=== PATIENT | female | born 1955 | race Two or more races ===

== ENCOUNTER → 2016-08-23 | Outpatient (CLI) | payer MEDICARE, OTHER ==
[2016-08-01 11:50] VITALS: BP 114/62
[~2016-08-23] MED LIST: ASPI-482 PO; ATOR10TA60 PO; CEPH-264 PO; CETI10TA22 PO; ESTR0.62; HYDR-2666 PO; INFL100V IV; MESA1.2T PO; METO25TA9 PO; MIRT15TA3; PEG31POW2; PREG75CA PO; SERT50TA PO; TRAM50TA PO
[2016-08-23 11:20] LABS: BASO % 1 % (0-3); EOS % 4 % (0-3); HEMATOCRIT 41.4 % (36.0-47.0); HEMOGLOBIN 13.7 g/dL (12.0-15.5); LYMPH # 2.7 x10^3/uL (1.0-4.8); LYMPH % 36 % (24-48); MEAN CORPUSCULAR HEMOGLOBIN 30 pg (25-35); MEAN CORPUSCULAR HGB CONC 33 g/dL (31-37); MEAN CORPUSCULAR VOLUME 91 fL (79-100); MONO % 7 % (0-9); NEUT % 52 % (31-73); PLATELET COUNT 245 x10^3/uL (140-400); RED BLOOD COUNT 4.54 x10^6/uL (3.50-5.40); RED CELL DISTRIBUTION WIDTH 14.3 % (11.5-14.5); WHITE BLOOD COUNT 7.4 x10^3/uL (4.0-11.0)
[2016-08-23 11:38] LABS: ALBUMIN 4.1 g/dL (3.4-5.0); DIRECT BILIRUBIN 0.1 mg/dL (0.0-0.2); TOTAL BILIRUBIN 0.4 mg/dL (0.2-1.0); TOTAL PROTEIN 9.3 g/dL (6.4-8.2)
== END | disposition home or self-care (01) ==
LOC: LAB 10:54
PROVIDERS: ATTEND Internal Medicine Gastroenterology
DX: K50.80 Crohn's disease of both small and large intestine without complications (principal)
CPT/HCPCS: 36415; 80076; 85027; 85651; 86140

== ENCOUNTER → 2017-07-08 | Outpatient (CLI) | payer MEDICARE, OTHER ==
[2017-04-25 13:00] VITALS: BP 97/60
[~2017-07-08] MED LIST changes: -HYDR-2666 PO; +HYDR-2758 PO; +METO-239 PO; -METO25TA9 PO; -PEG31POW2; +PEG31POW3
[2017-07-08 12:33] LABS: BASO # 0.1 x10^3/uL (0.0-0.2); BASO % 1 % (0-3); EOS % 3 % (0-3); HEMATOCRIT 38.9 % (36.0-47.0); LYMPH # 2.8 x10^3/uL (1.0-4.8); LYMPH % 37 % (24-48); MEAN CORPUSCULAR HEMOGLOBIN 30 pg (25-35); MEAN CORPUSCULAR HGB CONC 33 g/dL (31-37); MEAN CORPUSCULAR VOLUME 91 fL (79-100); MONO % 10 % (0-9); NEUT % 50 % (31-73); PLATELET COUNT 252 x10^3/uL (140-400); RED BLOOD COUNT 4.28 x10^6/uL (3.50-5.40); RED CELL DISTRIBUTION WIDTH 13.9 % (11.5-14.5); WHITE BLOOD COUNT 7.5 x10^3/uL (4.0-11.0)
[2017-07-08 12:38] LABS: BILIRUBIN,URINE NEGATIVE (NEG); GLUCOSE,URINE NEGATIVE (NEG); NITRITE,URINE NEGATIVE (NEG); PH,URINE 5.5; PROTEIN,URINE NEGATIVE (NEG-TRACE); UROBILINOGEN,URINE 0.2 mg/dL (0.2 mg/dL)
[2017-07-08 12:50] LABS: BACTERIA,URINE MODERATE /HPF (0-FEW); SQUAMOUS EPITHELIAL CELL,UR MOD /LPF
[2017-07-08 12:55] LABS: ALBUMIN 3.5 g/dL (3.4-5.0); ALBUMIN/GLOBULIN RATIO 0.8 (1.0-1.7); CALCIUM 8.7 mg/dL (8.5-10.1); CREATININE 0.8 mg/dL (0.6-1.0); GFR 72.4; POTASSIUM 3.9 mmol/L (3.5-5.1); TOTAL BILIRUBIN 0.5 mg/dL (0.2-1.0); TOTAL PROTEIN 7.9 g/dL (6.4-8.2)
[2017-07-08 12:59] LABS: CHOLESTEROL/HDL RATIO 3.9
--- NOTE | 2017-07-08 15:20 | RAD ---
DATE: 07/08/2017 EXAM: DIGITAL SCREEN BILAT W/CAD HISTORY: Routine screening COMPARISON: 07/02/2016 This study was interpreted with the benefit of Computerized Aided Detection (CAD). The breast parenchyma is heterogeneously dense, which could reduce sensitivity of mammography. Breast parenchyma level C. FINDINGS: No new or enlarging breast densities are seen. There are numerous benign type calcifications in both breasts. No suspicious microcalcifications have developed. IMPRESSION: Stable mammograms without evidence of malignancy. BI-RADS CATEGORY: 2 BENIGN FINDING(S) RECOMMENDED FOLLOW-UP: 12M 12 MONTH FOLLOW-UP PQRS compliance statement: Patient information was entered into a reminder system with a target due date for the next mammogram. Mammography is a sensitive method for finding small breast cancers, but it does not detect them all and is not a substitute for careful clinical examination. A negative mammogram does not negate a clinically suspicious finding and should not result in delay in biopsying a clinically suspicious abnormality. "Our facility is accredited by the [employer] Mammography Program."
== END | disposition home or self-care (01) ==
LOC: MAMMO 12:07
PROVIDERS: ATTEND Internal Medicine
DX: Z12.31 Encounter for screening mammogram for malignant neoplasm of breast (principal); I10 Essential (primary) hypertension
CPT/HCPCS: 36415; 80053; 80061; 81001; 84443; 85025; 87086; G0202; 77067

== ENCOUNTER 2017-08-16 16:20 | Emergency (ER) | payer MEDICARE, OTHER | END 2017-08-16 17:43 | disposition left against medical advice (07) | LOC: ER 16:20 | DX: S30.0XXA Contusion of lower back and pelvis, initial encounter (principal); S09.90XA Unspecified injury of head, initial encounter; I25.2 Old myocardial infarction; K50.90 Crohn's disease, unspecified, without complications; W06.XXXA Fall from bed, initial encounter; Y93.89 Activity, other specified; Y99.8 Other external cause status; Y92.89 Other specified places as the place of occurrence of the external cause | CPT/HCPCS: 72100; 99284 ==

== ENCOUNTER → 2017-11-15 | Outpatient (CLI) | payer MEDICARE, OTHER | END | disposition home or self-care (01) | LOC: CT 10:54 | DX: R91.8 Other nonspecific abnormal finding of lung field (principal); I10 Essential (primary) hypertension; E78.5 Hyperlipidemia, unspecified | CPT/HCPCS: 71250 ==

== ENCOUNTER → 2017-11-21 | Outpatient (CLI) | payer MEDICARE, OTHER ==
[2017-11-21 10:35] LABS: ADD MAN DIFF? NO
[2017-11-21 10:43] LABS: BILIRUBIN,URINE NEGATIVE (NEG); CLARITY,URINE CLEAR; COLOR,URINE YELLOW; GLUCOSE,URINE NEGATIVE (NEG); NITRITE,URINE NEGATIVE (NEG); PH,URINE 6.5; PROTEIN,URINE NEGATIVE (NEG-TRACE); UROBILINOGEN,URINE 0.2 mg/dL (0.2 mg/dL)
[2017-11-21 10:45] LABS: BASO % 0 % (0-3); EOS # 0.1 x10^3/uL (0.0-0.7); EOS % 1 % (0-3); HEMATOCRIT 38.8 % (36.0-47.0); HEMOGLOBIN 13.4 g/dL (12.0-15.5); LYMPH # 2.6 x10^3/uL (1.0-4.8); LYMPH % 25 % (24-48); MEAN CORPUSCULAR HEMOGLOBIN 31 pg (25-35); MEAN CORPUSCULAR HGB CONC 35 g/dL (31-37); MEAN CORPUSCULAR VOLUME 90 fL (79-100); MONO % 10 % (0-9); NEUT # 6.7 x10^3uL (1.8-7.7); NEUT % 65 % (31-73); PLATELET COUNT 322 x10^3/uL (140-400); RED BLOOD COUNT 4.29 x10^6/uL (3.50-5.40); RED CELL DISTRIBUTION WIDTH 14.2 % (11.5-14.5); WHITE BLOOD COUNT 10.4 x10^3/uL (4.0-11.0)
[2017-11-21 11:02] LABS: ALBUMIN 3.6 g/dL (3.4-5.0); ALBUMIN/GLOBULIN RATIO 0.7 (1.0-1.7); ALK PHOS 73 U/L (46-116); ALT (SGPT) 20 U/L (14-59); ANION GAP 9 (6-14); AST (SGOT) 13 U/L (15-37); BLOOD UREA NITROGEN 8 mg/dL (7-20); BUN/CREATININE RATIO 10 (6-20); CALCIUM 9.2 mg/dL (8.5-10.1); CARBON DIOXIDE 31 mmol/L (21-32); CHLORIDE 100 mmol/L (98-107); CHOLESTEROL 183 mg/dL (0-200); CHOLESTEROL/HDL RATIO 2.3; CREATININE 0.8 mg/dL (0.6-1.0); GFR 72.4; GLUCOSE 113 mg/dL (70-99); HDLC 78 mg/dL (40-60); LDLC 91 mg/dL (0-100); NON-HDL CHOLESTEROL 105 mg/dL (0-129); POTASSIUM 3.7 mmol/L (3.5-5.1); SODIUM 140 mmol/L (136-145); TOTAL BILIRUBIN 0.6 mg/dL (0.2-1.0); TOTAL PROTEIN 8.8 g/dL (6.4-8.2); TRIGLYCERIDES 68 mg/dL (0-150); VLDLC 14 mg/dL (0-40)
[2017-11-21 11:03] LABS: BACTERIA,URINE FEW /HPF (0-FEW); RBC,URINE 0 /HPF (0-2); SQUAMOUS EPITHELIAL CELL,UR MANY /LPF; WBC,URINE 20-40 /HPF (0-4)
[2017-11-21 11:12] LABS: THYROID STIM HORMONE (TSH) 0.955 uIU/mL (0.358-3.74)
[2017-11-22 04:24] LABS: HEMOGLOBIN A1C 6.1 % (4.8-5.6)
== END | disposition home or self-care (01) ==
LOC: LAB 10:03
DX: I10 Essential (primary) hypertension (principal); N39.0 Urinary tract infection, site not specified; E78.5 Hyperlipidemia, unspecified; R79.89 Other specified abnormal findings of blood chemistry
CPT/HCPCS: 36415; 80053; 80061; 81001; 83036; 84443; 85025; 87086

== ENCOUNTER 2017-12-07 16:25 | Emergency (ER) | payer MEDICARE, OTHER | END 2017-12-07 17:41 | disposition left against medical advice (07) | LOC: ER 16:25 | DX: R10.32 Left lower quadrant pain (principal); K59.00 Constipation, unspecified; K50.90 Crohn's disease, unspecified, without complications; I25.2 Old myocardial infarction; Z90.710 Acquired absence of both cervix and uterus | CPT/HCPCS: 99281 ==

== ENCOUNTER → 2018-01-06 | Outpatient (CLI) | payer MEDICARE, OTHER ==
[2018-01-06 09:47] LABS: ADD MAN DIFF? NO
[2018-01-06 10:01] LABS: BASO % 1 % (0-3); EOS # 0.2 x10^3/uL (0.0-0.7); EOS % 2 % (0-3); HEMATOCRIT 40.6 % (36.0-47.0); HEMOGLOBIN 13.6 g/dL (12.0-15.5); LYMPH # 3.7 x10^3/uL (1.0-4.8); LYMPH % 46 % (24-48); MEAN CORPUSCULAR HEMOGLOBIN 31 pg (25-35); MEAN CORPUSCULAR HGB CONC 34 g/dL (31-37); MEAN CORPUSCULAR VOLUME 91 fL (79-100); MONO # 0.6 x10^3/uL (0.0-1.1); MONO % 8 % (0-9); NEUT # 3.5 x10^3uL (1.8-7.7); NEUT % 44 % (31-73); PLATELET COUNT 301 x10^3/uL (140-400); RED BLOOD COUNT 4.45 x10^6/uL (3.50-5.40); RED CELL DISTRIBUTION WIDTH 14.3 % (11.5-14.5)
[2018-01-06 10:19] LABS: ALBUMIN 3.8 g/dL (3.4-5.0); ALBUMIN/GLOBULIN RATIO 0.9 (1.0-1.7); ALK PHOS 66 U/L (46-116); ALT (SGPT) 26 U/L (14-59); ANION GAP 10 (6-14); AST (SGOT) 21 U/L (15-37); BILIRUBIN,URINE NEGATIVE (NEG); BLOOD UREA NITROGEN 15 mg/dL (7-20); BUN/CREATININE RATIO 21 (6-20); CALCIUM 9.4 mg/dL (8.5-10.1); CARBON DIOXIDE 27 mmol/L (21-32); CHLORIDE 101 mmol/L (98-107); CHOLESTEROL 196 mg/dL (0-200); CLARITY,URINE CLOUDY; COLOR,URINE YELLOW; CREATININE 0.7 mg/dL (0.6-1.0); GFR 84.5; GLUCOSE 113 mg/dL (70-99); GLUCOSE,URINE NEGATIVE (NEG); HDLC 67 mg/dL (40-60); LDLC 101 mg/dL (0-100); NITRITE,URINE NEGATIVE (NEG); NON-HDL CHOLESTEROL 129 mg/dL (0-129); PH,URINE 5.5; POTASSIUM 3.7 mmol/L (3.5-5.1); PROTEIN,URINE NEGATIVE (NEG-TRACE); SODIUM 138 mmol/L (136-145); TOTAL BILIRUBIN 0.5 mg/dL (0.2-1.0); TOTAL PROTEIN 8.2 g/dL (6.4-8.2); TRIGLYCERIDES 139 mg/dL (0-150); UROBILINOGEN,URINE 0.2 mg/dL (0.2 mg/dL); VLDLC 28 mg/dL (0-40)
[2018-01-06 10:22] LABS: CHOLESTEROL/HDL RATIO 2.9
[2018-01-06 10:23] LABS: THYROID STIM HORMONE (TSH) 2.327 uIU/mL (0.358-3.74)
[2018-01-06 10:58] LABS: BACTERIA,URINE MODERATE /HPF (0-FEW); RBC,URINE 0 /HPF (0-2)
[2018-01-06 10:59] LABS: SQUAMOUS EPITHELIAL CELL,UR MANY /LPF; YEAST,URINE PRESENT /HPF
== END | disposition home or self-care (01) ==
LOC: LAB 09:24
DX: I10 Essential (primary) hypertension (principal); R73.9 Hyperglycemia, unspecified; R82.90 Unspecified abnormal findings in urine
CPT/HCPCS: 36415; 80053; 80061; 81001; 83036; 84443; 85025; 87086

== ENCOUNTER → 2018-09-08 | Outpatient (CLI) | payer MEDICARE, OTHER ==
[2017-12-07 17:11] VITALS: BP 141/80
[~2018-09-08] MED LIST changes: -HYDR-2758 PO; +HYDR-2761 PO; +LIALDA1.2 GM PO; -MESA1.2T PO
[2018-09-08 10:40] LABS: BASO # 0.1 x10^3/uL (0.0-0.2); BASO % 1 % (0-3); EOS # 0.2 x10^3/uL (0.0-0.7); EOS % 3 % (0-3); HEMATOCRIT 41.7 % (36.0-47.0); HEMOGLOBIN 13.8 g/dL (12.0-15.5); LYMPH # 3.8 x10^3/uL (1.0-4.8); LYMPH % 45 % (24-48); MEAN CORPUSCULAR HEMOGLOBIN 30 pg (25-35); MEAN CORPUSCULAR HGB CONC 33 g/dL (31-37); MEAN CORPUSCULAR VOLUME 90 fL (79-100); MONO # 0.7 x10^3/uL (0.0-1.1); MONO % 8 % (0-9); NEUT # 3.6 x10^3uL (1.8-7.7); NEUT % 43 % (31-73); PLATELET COUNT 313 x10^3/uL (140-400); RED BLOOD COUNT 4.63 x10^6/uL (3.50-5.40); RED CELL DISTRIBUTION WIDTH 14.1 % (11.5-14.5); WHITE BLOOD COUNT 8.4 x10^3/uL (4.0-11.0)
[2018-09-08 10:42] LABS: BILIRUBIN,URINE NEGATIVE (NEG); CLARITY,URINE CLEAR; COLOR,URINE YELLOW; NITRITE,URINE NEGATIVE (NEG); PROTEIN,URINE NEGATIVE (NEG-TRACE); UROBILINOGEN,URINE 0.2 mg/dL (0.2 mg/dL)
[2018-09-08 10:50] LABS: SQUAMOUS EPITHELIAL CELL,UR MOD /LPF
[2018-09-08 10:51] LABS: BACTERIA,URINE MOD /HPF (0-FEW)
[2018-09-08 10:53] LABS: RBC,URINE OCC /HPF (0-2)
[2018-09-08 10:59] LABS: ALBUMIN 4.3 g/dL (3.4-5.0); CALCIUM 9.3 mg/dL (8.5-10.1); GFR 55.8; POTASSIUM 4.2 mmol/L (3.5-5.1); TOTAL BILIRUBIN 0.5 mg/dL (0.2-1.0); TOTAL PROTEIN 8.7 g/dL (6.4-8.2)
--- NOTE | 2018-09-08 11:04 | RAD ---
DATE: 09/08/2018 EXAM: MAMMO FELY SCREENING BILATERAL HISTORY: Routine screening COMPARISON: 07/08/2017 This study was interpreted with the benefit of Computerized Aided Detection (CAD). Breast Density: HETERO The breast parenchyma is heterogenously dense, which could reduce sensitivity of mammography. Breast parenchyma level C. FINDINGS: 2-D and 3-D tomosynthesis imaging was performed in CC and MLO projections. The fibroglandular tissues are dense and quite heterogeneous. No new or enlarging breast density is seen. There are numerous microcalcifications in both breasts. The distribution suggests a benign etiology. IMPRESSION: Stable mammograms without evidence of malignancy. BI-RADS CATEGORY: 2 BENIGN FINDING(S) RECOMMENDED FOLLOW-UP: 12M 12 MONTH FOLLOW-UP PQRS compliance statement: Patient information was entered into a reminder system with a target due date for the next mammogram. Mammography is a sensitive method for finding small breast cancers, but it does not detect them all and is not a substitute for careful clinical examination. A negative mammogram does not negate a clinically suspicious finding and should not result in delay in biopsying a clinically suspicious abnormality. "Our facility is accredited by the [employer] Mammography Program."
[2018-09-08 11:13] LABS: CHOLESTEROL/HDL RATIO 3.2
== END | disposition home or self-care (01) ==
LOC: LAB 09:58
PROVIDERS: ATTEND Internal Medicine
DX: Z12.31 Encounter for screening mammogram for malignant neoplasm of breast (principal); I10 Essential (primary) hypertension; E78.5 Hyperlipidemia, unspecified; Z90.49 Acquired absence of other specified parts of digestive tract
CPT/HCPCS: 36415; 77063; 77067; 80053; 80061; 81001; 84443; 85025

== ENCOUNTER → 2018-10-08 | Outpatient (CLI) | payer MEDICARE, OTHER ==
[2017-12-07 17:11] VITALS: BP 141/80
[~2018-10-08] MED LIST changes: +ZOLPIDEM 5 MG TABLET. PO ONE
--- NOTE | 2018-10-09 14:57 | SLEEP ---
DATE OF STUDY: 10/08/2018 ATTENDING PHYSICIAN: Dr. Thibodeaux. REFERRING PHYSICIAN: Dr. Jeremy De La Rosa. The patient is a 63-year-old who weighs 155 pounds with a BMI of 26. The patient's [place] score was 12. The patient underwent split night study at [facility]. During the night study, the patient spent 495 minutes in bed and slept for 450 minutes with sleep efficiency of 91%. Sleep latency was 29 minutes with a REM latency of 217 minutes. Overall sleep architecture showed increased stage 1 and stage 2 sleep, increased N3 sleep and reduced REM sleep. During the initial diagnostic portion of the study, the patient slept for 111 minutes. During that time, there were no obstructive central or mixed apneas, but 62 hypopneas. The patient's apnea-hypopnea index was 34 per hour, supine index was not observed due to lack of supine sleep and REM sleep was not observed either. Nocturnal oximetry study revealed a mean oxygen saturation of 96% with the lowest of 79%. 8% of the time oxygen saturation remained between 80% and 89%. PLMS were seen at index of 28 per hour and 2 per hour caused EEG arousals. EKG monitoring revealed an average heart rate of 66 beats per minute, occasional PACs seen. No sustained arrhythmias observed. The patient met the criteria for CPAP initiation. It was started at 5 cm water and titrated up to 12 cm of water. At the final pressure, the patient slept for 46 minutes. The patient had supine sleep throughout. No REM sleep observed. The patient's AHI was reduced to 1 per hour and oxygen saturation remained above 93%. The patient used small sized full face mask. IMPRESSION: 1. Severe sleep apnea-hypopnea syndrome at an apnea-hypopnea index of 34 per hour. 2. Nocturnal hypoxia secondary to obstructive sleep apnea, but resolved with CPAP. 3. Moderate periodic limb movements of sleep. RECOMMENDATIONS: 1. CPAP at 12 cm water completely eliminated the patient's sleep apnea and should be used on a nightly basis. 2. Follow up in 4-6 weeks to assess compliance with CPAP and to document clinical improvement. 3. Weight loss is advised. 4. 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 5. Cautioned regarding driving until symptoms of sleep apnea have resolved with the use of CPAP. 6. The patient should also be further evaluated for symptoms of restless legs during the day. JULIO MATOS MD DR: MELISSA/jonatan JOB#: [id number] / [id number] JEREMY Peraza MD
== END | disposition home or self-care (01) ==
LOC: SLPLAB 19:15
PROVIDERS: ATTEND Internal Medicine Pulmonary Disease
DX: G47.33 Obstructive sleep apnea (adult) (pediatric) (principal); G47.34 Idiopathic sleep related nonobstructive alveolar hypoventilation; G47.61 Periodic limb movement disorder
CPT/HCPCS: 95810

== ENCOUNTER → 2019-01-01 | Outpatient (CLI) | payer MEDICARE, OTHER ==
[2017-12-07 17:11] VITALS: BP 141/80
[~2019-01-01] MED LIST changes: -ZOLPIDEM 5 MG TABLET. PO ONE
[2019-01-01 11:36] LABS: BASO % 1 % (0-3); EOS # 0.2 x10^3/uL (0.0-0.7); EOS % 3 % (0-3); HEMATOCRIT 39.3 % (36.0-47.0); HEMOGLOBIN 13.2 g/dL (12.0-15.5); LYMPH # 3.4 x10^3/uL (1.0-4.8); LYMPH % 49 % (24-48); MEAN CORPUSCULAR HEMOGLOBIN 31 pg (25-35); MEAN CORPUSCULAR HGB CONC 34 g/dL (31-37); MEAN CORPUSCULAR VOLUME 92 fL (79-100); MONO # 0.6 x10^3/uL (0.0-1.1); MONO % 8 % (0-9); NEUT # 2.8 x10^3uL (1.8-7.7); NEUT % 40 % (31-73); PLATELET COUNT 300 x10^3/uL (140-400); RED BLOOD COUNT 4.28 x10^6/uL (3.50-5.40); RED CELL DISTRIBUTION WIDTH 14.1 % (11.5-14.5)
[2019-01-01 11:51] LABS: ALBUMIN 3.9 g/dL (3.4-5.0); ALBUMIN/GLOBULIN RATIO 0.9 (1.0-1.7); CALCIUM 9.7 mg/dL (8.5-10.1); GFR 55.8; POTASSIUM 4.5 mmol/L (3.5-5.1); TOTAL BILIRUBIN 0.4 mg/dL (0.2-1.0); TOTAL PROTEIN 8.2 g/dL (6.4-8.2)
[2019-01-01 11:52] LABS: CHOLESTEROL/HDL RATIO 3.1
== END | disposition home or self-care (01) ==
LOC: LAB 11:12
PROVIDERS: ATTEND Internal Medicine
DX: I10 Essential (primary) hypertension (principal)
CPT/HCPCS: 36415; 80053; 80061; 85025

== ENCOUNTER 2019-12-11 16:58 | Emergency (ER) | payer OTHER ==
[~2019-12-11] VITALS: Ht 165.1 cm; Wt 77.2 kg
[~2019-12-11 16:58] MED LIST changes: -CETI10TA22 PO; +CETI10TA24 PO; +PREG-9 PO; -PREG75CA PO
--- NOTE | 2019-12-11 17:26 | PHYS DOC ---
Past Medical History Past Medical History: Depression, [place], Other Additional Past Medical Histor: Crohns disease (WILLIAM LOPEZ MD) Past Surgical History: Hysterectomy, Other Additional Past Surgical Histo: Sinus Surgery (WILLIAM LOPEZ MD) Smoking Status: Never Smoker Alcohol Use: None Drug Use: None (WILLIAM LOPEZ MD) General Adult EDM: Chief Complaint: ABDOMINAL PAIN HPI: HPI: PPE Statement: During the patient's care I used an N95 mask, gloves, and face sheild. 64-year-old female presented emerge department today with abdominal pain for the last few days. She has had a few episodes of vomiting that is nonbilious or bloody. She has a history of a hysterectomy. She denies any fevers or chills. She has a history of Crohn's disease. She denies diarrhea or blood in her stools. The pain is a sharp shooting pain that radiates around to the back. Its moderate intermittent without alleviating factors. Review of systems is negative for chest pain shortness of breath fevers or chills. All other review of systems negative. ED course: 64-year-old female presenting with nausea and vomiting with abdominal pain. Vitals are within normal limits. Patient is well-appearing. Patient was placed n.p.o. Blood work sent. Abdominal CT ordered. We will give the patient IV fluids antiemetic medications and pain medications in the interim. pt will be signed out to oncoming physician at around 6pm with plans to follow up on testing and reexamine pt for final disposition. (WILLIAM LOPEZ MD) Heart Score: Risk Factors: Risk Factors: DM, Current or recent (<one month) smoker, HTN, HLP, family history of CAD, obesity. Risk Scores: Score 0 - 3: 2.5% MACE over next 6 weeks - Discharge Home Score 4 - 6: 20.3% MACE over next 6 weeks - Admit for Clinical Observation Score 7 - 10: 72.7% MACE over next 6 weeks - Early Invasive Strategies (WILLIAM LOPEZ MD) Allergies: Allergies: Allergies Coded Allergies Type Severity Reaction Last Updated Verified No Known Drug Allergies 04/25/17 No (WILLIAM LOPEZ MD) Physical Exam: PE: Constitutional: Well developed, well nourished, no acute distress, non-toxic appearance. [] HENT: Normocephalic, atraumatic, bilateral external ears normal, oropharynx moist, no oral exudates, nose normal. [] Eyes: PERRLA, EOMI, conjunctiva normal, no discharge. [] Neck: Normal range of motion, no tenderness, supple, no stridor. [] Cardiovascular:Heart rate regular rhythm, no murmur [] Lungs & Thorax: Bilateral breath sounds clear to auscultation [] Abdomen: Bowel sounds normal, soft, mildly tender generally without a focus, mildly distended, no masses, no pulsatile masses. Negative McBurney's point. Negative Vivas sign. No rebound tenderness or guarding. Skin: Warm, dry, no erythema, no rash. [] Back: No tenderness, no CVA tenderness. [] Extremities: No tenderness, no cyanosis, no clubbing, ROM intact, no edema. [] Neurologic: Alert and oriented X 3, normal motor function, normal sensory function, no focal deficits noted. [] Psychologic: Affect normal, judgement normal, mood normal. [] (WILLIAM LOPEZ MD) EKG: EKG: [] (WILLIAM LOPEZ MD) Radiology/Procedures: Radiology/Procedures: [] (WILLIAM LOPEZ MD) Impression: PROCEDURE: CT ABD PELV W/ IV CONTRST ONLY CT abdomen and pelvis with contrast PQRS statement: CT scans at this facility use dose reduction including either automated exposure control, iterative reconstructions, and /or weight based radiation dosing via mA and kV modification when appropriate to reduce radiation dose to as low as reasonably achievable. Contrast: 60 mL Omnipaque 300 intravenous contrast. HISTORY: Abdominal pain and vomiting. Abdomen findings: Lung bases and bones are unremarkable. Lumbar disc disease. Pancreas, liver, gallbladder, spleen, adrenal glands and left kidney are unremarkable. There is mild right renal hydronephrosis renal pelvis diameter 1.2 cm and mild asymmetric distention of the right upper ureter, near the region of the right distal ureter image 78 there is a 3 mm calculus which appears to be along the posterior wall of the ureter and not within the center of the ureter which favors this is more likely a phlebolith than a ureteral calculus although given the hydronephrosis a urinary calculus is possible. No renal edema or delayed or striated nephrogram evident. No obstruction or inflammation the GI tract. Appendix is small in caliber medial the cecum and negative. No abdominal fluid or adenopathy. Pelvis findings: Hysterectomy. Left ovary absent. Right ovary absent or markedly atrophic. Pelvic calcification likely phleboliths one of which is along the posterior wall distal right ureter. No bladder calculi evident. Rectum and bones are unremarkable. IMPRESSION: 1. Mild right renal hydronephrosis. There is a 3 mm calcification along the posterior wall of the distal right ureter adjacent of the bladder, favored to be a phlebolith, although given the presence of hydronephrosis an eccentrically positioned urinary calculus is a less likely consideration. Follow-up will be of benefit. 2. Appendix is negative. Electronically signed by: Jaime Aguilar MD (12/11/2019 7:07 PM) [facility] (BARBIE CASTAÑEDA Jr. DO) Course & Med Decision Making: Course & Med Decision Making Pertinent Labs and Imaging studies reviewed. (See chart for details) [] (WILLIAM LOPEZ MD) Dragon Disclaimer: Dragon Disclaimer: This electronic medical record was generated, in whole or in part, using a voice recognition dictation system. (WILLIAM LOPEZ MD) Departure Departure Impression: Primary Impression: Vomiting Qualified Codes: R11.2 - Nausea with vomiting, unspecified Additional Impressions: Abdominal pain Qualified Codes: R10.9 - Unspecified abdominal pain Ureterolithiasis Disposition: HOME, SELF-CARE Condition: STABLE Referrals: KATHRIN GARCIA MD (PCP) Patient Instructions: Abdominal Pain, Kidney Stones Scripts Tamsulosin Hcl (FLOMAX) 0.4 Mg Cap.er.24h 0.4 MG PO DAILY, #10 TAB Prov: BARBIE CASTAÑEDA Jr. DO 12/11/19 Ondansetron (ONDANSETRON ODT) 4 Mg Tab.rapdis 1 TAB PO PRN Q6-8HRS PRN for NAUSEA, #15 TAB Prov: BARBIE CASTAÑEDA Jr. DO 12/11/19 Oxycodone/Apap 7.5-325 (PERCOCET 7.5-325 MG TABLET ) 1 Each Tablet 1 TAB PO QIDPRN PRN for PAIN MDD 4 Tablet(s) for 5 Days, #20 TAB 0 Refills Prov: BARBIE CASTAÑEDA Jr. DO 12/11/19 WILLIAM LOPEZ MD December 11, 2019 17:26 BARBIE CASTAÑEDA Jr. DO December 11, 2019 19:37
[2019-12-11] MEDS ORDERED: ONDANSETRON PF 4 MG/2 ML VIAL. IVP ONE (17:30)
[2019-12-11] MEDS ORDERED: IV NORMAL SALINE 1000ML BAG 1,000 ML IV ONE (17:30)
[2019-12-11 17:31] LABS: BILIRUBIN,URINE NEGATIVE (NEG); CLARITY,URINE CLEAR; COLOR,URINE STRAW; NITRITE,URINE NEGATIVE (NEG); PROTEIN,URINE NEGATIVE (NEG-TRACE); UROBILINOGEN,URINE 0.2 mg/dL (0.2 mg/dL)
[2019-12-11 17:35] LABS: BACTERIA,URINE MODERATE /HPF (0-FEW); RBC,URINE 0 /HPF (0-2); SQUAMOUS EPITHELIAL CELL,UR FEW /LPF; WBC,URINE OCC /HPF (0-4)
[2019-12-11] MEDS: fentaNYL PF VIAL 100 MCG/2 ML VIAL IV PRN ×2 (17:50→19:25)
[2019-12-11 17:53] LABS: BASO # 0.1 x10^3/uL (0.0-0.2); BASO % 1 % (0-3); EOS # 0.1 x10^3/uL (0.0-0.7); EOS % 2 % (0-3); HEMATOCRIT 36.8 % (36.0-47.0); HEMOGLOBIN 12.3 g/dL (12.0-15.5); LYMPH # 3.1 x10^3/uL (1.0-4.8); LYMPH % 34 % (24-48); MEAN CORPUSCULAR HEMOGLOBIN 30 pg (25-35); MEAN CORPUSCULAR HGB CONC 33 g/dL (31-37); MEAN CORPUSCULAR VOLUME 91 fL (79-100); MONO # 0.8 x10^3/uL (0.0-1.1); MONO % 8 % (0-9); NEUT # 5.1 x10^3/uL (1.8-7.7); NEUT % 56 % (31-73); PLATELET COUNT 312 x10^3/uL (140-400); RED BLOOD COUNT 4.04 x10^6/uL (3.50-5.40); RED CELL DISTRIBUTION WIDTH 15.1 % (11.5-14.5); WHITE BLOOD COUNT 9.3 x10^3/uL (4.0-11.0)
[2019-12-11 18:01] LABS: CALCIUM 8.6 mg/dL (8.5-10.1); CREATININE 1.1 mg/dL (0.6-1.0); GFR 49.8; POTASSIUM 3.4 mmol/L (3.5-5.1)
[2019-12-11 18:07] LABS: ALBUMIN 3.6 g/dL (3.4-5.0); ALBUMIN/GLOBULIN RATIO 0.9 (1.0-1.7); TOTAL BILIRUBIN 0.2 mg/dL (0.2-1.0); TOTAL PROTEIN 7.5 g/dL (6.4-8.2)
[2019-12-11] MEDS ORDERED: IOHEXOL 300 MG/ML 100ML VIAL. IV ONE (18:15)
[2019-12-11] MEDS ORDERED: CONTRAST GIVEN. MC PRN (18:15)
--- NOTE | 2019-12-11 19:10 | RAD ---
CT abdomen and pelvis with contrast PQRS statement: CT scans at this facility use dose reduction including either automated exposure control, iterative reconstructions, and /or weight based radiation dosing via mA and kV modification when appropriate to reduce radiation dose to as low as reasonably achievable. Contrast: 60 mL Omnipaque 300 intravenous contrast. HISTORY: Abdominal pain and vomiting. Abdomen findings: Lung bases and bones are unremarkable. Lumbar disc disease. Pancreas, liver, gallbladder, spleen, adrenal glands and left kidney are unremarkable. There is mild right renal hydronephrosis renal pelvis diameter 1.2 cm and mild asymmetric distention of the right upper ureter, near the region of the right distal ureter image 78 there is a 3 mm calculus which appears to be along the posterior wall of the ureter and not within the center of the ureter which favors this is more likely a phlebolith than a ureteral calculus although given the hydronephrosis a urinary calculus is possible. No renal edema or delayed or striated nephrogram evident. No obstruction or inflammation the GI tract. Appendix is small in caliber medial the cecum and negative. No abdominal fluid or adenopathy. Pelvis findings: Hysterectomy. Left ovary absent. Right ovary absent or markedly atrophic. Pelvic calcification likely phleboliths one of which is along the posterior wall distal right ureter. No bladder calculi evident. Rectum and bones are unremarkable. IMPRESSION: 1. Mild right renal hydronephrosis. There is a 3 mm calcification along the posterior wall of the distal right ureter adjacent of the bladder, favored to be a phlebolith, although given the presence of hydronephrosis an eccentrically positioned urinary calculus is a less likely consideration. Follow-up will be of benefit. 2. Appendix is negative. Electronically signed by: Jaime Aguilar MD (12/11/2019 7:07 PM) [facility]
[2019-12-11 19:30] VITALS: BP 132/61
[2019-12-11] MEDS ORDERED: OXYC1TAB19 PO (19:36)
[2019-12-11] MEDS ORDERED: ONDA4TAB12 PO (19:36)
[2019-12-11] MEDS ORDERED: TAMS0.4C97 PO (19:36)
--- NOTE | 2019-12-14 07:08 | EKG ---
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
== END 2019-12-11 20:02 | disposition home or self-care (01) ==
LOC: ER 16:58
DX: N13.2 Hydronephrosis with renal and ureteral calculous obstruction (principal); R11.2 Nausea with vomiting, unspecified; Z90.710 Acquired absence of both cervix and uterus; Z98.890 Other specified postprocedural states; I25.2 Old myocardial infarction; Z88.8 Allergy status to other drugs, medicaments and biological substances
CPT/HCPCS: 36415; 74177; 80053; 81001; 83690; 84484; 85025; 87086; 93005; 96361; 96374; 96375; 96376; 99285; J2405; J3010; J7030; Q9967

== ENCOUNTER → 2020-02-18 | Outpatient (CLI) | payer OTHER ==
[~2020-02-18] MED LIST changes: -CETI10TA24 PO; +CETI10TA74 PO; +ONDA4TAB12 PO; +OXYC1TAB19 PO; +TAMS0.4C97 PO
--- NOTE | 2020-02-18 12:15 | CARD ---
MR#: [id number] Date of Study: 02/18/2020 Ordering Physician: AMERICA NEAL, Referring Physician: AMERICA NEAL, Tech: Treasure Nolasco [facility] APPROVED REPORT EXAM: Two-dimensional and M-mode echocardiogram with Doppler and color Doppler. Other Information Quality : Good INDICATION Dizziness and Vertigo 2D DIMENSIONS RVDd2.8 (2.9-3.5cm)Left Atrium(2D)3.3 (1.6-4.0cm) IVSd1.1 (0.7-1.1cm)Aortic Root(2D)2.6 (2.0-3.7cm) LVDd4.0 (3.9-5.9cm)LVOT Diameter1.8 (1.8-2.4cm) PWd1.0 (0.7-1.1cm)LVDs2.8 (2.5-4.0cm) FS (%) 30.0 %LVEF(%)60.0 (>50%) Aortic Valve AoV Peak Josh.133.0cm/sAoV VTI25.0cm AO Peak GR.7.0mmHgAO Mean GR.3mmHg EDUAR (VTI)2.70cm2 Tricuspid Valve TR P. [id number]/sRAP [id number] TR Peak Gr.[id number] LEFT VENTRICLE The left ventricle is normal size. There is normal left ventricular wall thickness. The left ventricu lar systolic function is normal and the ejection fraction is within normal range. The Ejection Fracti on is 55-60%. There is normal LV segmental wall motion. Transmitral Doppler flow pattern is Grade I-a bnormal relaxation pattern. RIGHT VENTRICLE The right ventricle is normal size. The right ventricular systolic function is normal. ATRIA The left atrium size is normal. The right atrium size is normal. The interatrial septum is intact wit h no evidence for an atrial septal defect or patent foramen ovale as noted on 2-D or Doppler imaging. AORTIC VALVE The aortic valve is normal in structure and function. Doppler and Color Flow revealed no significant aortic regurgitation. There is no significant aortic valvular stenosis. MITRAL VALVE The mitral valve is normal in structure and function. There is no evidence of mitral valve prolapse. There is no mitral valve stenosis. Doppler and Color-flow revealed trace to mild mitral regurgitation . TRICUSPID VALVE The tricuspid valve is normal in structure and function. Doppler and Color Flow revealed trace to mil d tricuspid regurgitation. The PA pressure was estimated at 24 mmHg. There is no tricuspid valve sten osis. PULMONIC VALVE The pulmonary valve is normal in structure and function. Doppler and Color Flow revealed trace to mil d pulmonic valvular regurgitation. There is no pulmonic valvular stenosis. GREAT VESSELS The aortic root is normal in size. The ascending aorta is normal in size. The IVC is normal in size a nd collapses >50% with inspiration. PERICARDIAL EFFUSION There is no evidence of significant pericardial effusion. Critical Notification Critical Value: No <Conclusion> The left ventricle is normal size. The left ventricular systolic function is normal and the ejection fraction is within normal range. The Ejection Fraction is 55-60%. Doppler and Color Flow revealed no significant aortic regurgitation. There is no significant aortic valvular stenosis. Doppler and Color-flow revealed trace to mild mitral regurgitation. Doppler and Color Flow revealed trace to mild tricuspid regurgitation. The PA pressure was estimated at 24 mmHg. Signed by : America Neal MD Electronically Approved : 02/18/2020 12:14:40
== END | disposition home or self-care (01) ==
LOC: CARD 09:38
PROVIDERS: ATTEND Internal Medicine Cardiovascular Disease
DX: I08.8 Other rheumatic multiple valve diseases (principal); R42 Dizziness and giddiness
CPT/HCPCS: 93306

== ENCOUNTER 2020-03-21 13:02 | Emergency (ER) | payer OTHER ==
[~2020-03-21] VITALS: Ht 165.1 cm; Wt 80.0 kg
[~2020-03-21 13:02] MED LIST changes: +CETI10TA24 PO; -CETI10TA74 PO
[2020-03-21 13:15] VITALS: BP 123/73
[2020-03-21 13:48] LABS: BILIRUBIN,URINE NEGATIVE (NEG); CLARITY,URINE CLEAR; COLOR,URINE YELLOW; NITRITE,URINE NEGATIVE (NEG); PROTEIN,URINE NEGATIVE (NEG-TRACE); UROBILINOGEN,URINE 0.2 mg/dL (0.2 mg/dL)
--- NOTE | 2020-03-21 13:58 | PHYS DOC ---
Past Medical History Past Medical History: Depression, [place], Other Additional Past Medical Histor: Crohns disease Past Surgical History: Hysterectomy, Other Additional Past Surgical Histo: Sinus Surgery Smoking Status: Never Smoker Alcohol Use: None Drug Use: None General Adult EDM: Chief Complaint: BACK PAIN - NO INJURY HPI: HPI: Patient is a 65 year old female who comes to the emergency department with complaints of aching in her bilateral shoulders and bilateral lower back pain that radiates into her legs with movement for the last week. She reports that she was tested for COVID-19 last week but states that her test was negative she denies any abdominal pain, nausea, vomiting, cough, sore throat, headache, shortness of breath, wheezing, chest pain, or palpitations. She reports a history of Crohn's disease and states that she takes Humira. She reports that adso-fyi-hmawzah ibuprofen and Tylenol did not help her pain. She currently rates her pain a 10 out of 10 on the pain scale, she denies radiation, she denies alleviating factors the pain is worse with movement. Review of Systems: Review of Systems: Complete review of systems is negative unless otherwise documented in the HPI Heart Score: Risk Factors: Risk Factors: DM, Current or recent (<one month) smoker, HTN, HLP, family history of CAD, obesity. Risk Scores: Score 0 - 3: 2.5% MACE over next 6 weeks - Discharge Home Score 4 - 6: 20.3% MACE over next 6 weeks - Admit for Clinical Observation Score 7 - 10: 72.7% MACE over next 6 weeks - Early Invasive Strategies Allergies: Allergies: Allergies Coded Allergies Type Severity Reaction Last Updated Verified No Known Drug Allergies 04/25/17 No Physical Exam: PE: Constitutional: Well developed, well nourished, no acute distress, non-toxic appearance. [] HENT: Normocephalic, atraumatic, bilateral external ears normal, nose normal. [] Eyes: PERRLA, EOMI, conjunctiva normal, no discharge. [] Neck: Normal range of motion, no stridor. [] Cardiovascular:Heart rate regular rhythm, no murmur [] Lungs & Thorax: Respirations even and unlabored, no retractions, no respiratory distress Abdomen: soft, no tenderness Skin: Warm, dry, no erythema, no rash. [] Back: No bony tenderness, no CVA tenderness; bilateral paraspinal lumbar tenderness, bilateral increased low back pain with straight leg lift [] Extremities: Bilateral shoulders: No bony tenderness, no obvious deformity, no cyanosis, no clubbing, ROM intact, no edema. [] Neurologic: Alert and oriented X 3, normal motor function, normal sensory function, no focal deficits noted. [] Psychologic: Affect normal, judgement normal, mood normal. [] Current Patient Data: Vital Signs: Vital Signs Date Time Temp Pulse Resp B/P (MAP) Pulse Ox O2 Delivery O2 Flow Rate FiO2 03/21/20 13:15 97.1 78 20 123/73 (90) 100 Room Air 97.1 EKG: EKG: [] Radiology/Procedures: Radiology/Procedures: [] Course & Med Decision Making: Course & Med Decision Making Pertinent Labs and Imaging studies reviewed. (See chart for details) 65-year-old female presents the emergency department with complaints of bilateral low back pain that radiates to her legs for the last week and aching in both of her shoulders for the last week. She reported a history of arthritis and Crohn's disease. Patient reports that she takes Humira. I asked patient if she had tried taking any aoka-ehl-nsyvmwf pain medication such as Tylenol or ibuprofen. The patient states that medication does not help her pain. Patient reported that her primary care doctor was Dr. Thibodeaux. Advised the patient that I would consult Dr. Thibodeaux before prescribing medication for her arthritis pain and her bilateral lower back pain with sciatica. The patient became irate and stated that she did not need my help and eloped from the emergency department. Patient stated she did not want me to call her doctor. [] Dragon Disclaimer: Dragon Disclaimer: This electronic medical record was generated, in whole or in part, using a voice recognition dictation system. Departure Departure Impression: Primary Impression: Eloped from emergency department Disposition: 01 HOME, SELF-CARE (pt eloped, did not want me to contact her PCP ) Condition: STABLE Referrals: KATHRIN THIBODEAUX MD (PCP) Justicifation of Admission Dx: Justifications for Admission: Justification of Admission Dx: N/A VIKA DEL VALLE AGENCY DEVELOPMENT MANAGER Mar 21, 2020 13:58
[2020-03-21 14:07] LABS: RBC,URINE 0 /HPF (0-2)
[2020-03-21 14:08] LABS: BACTERIA,URINE MODERATE /HPF (0-FEW); SQUAMOUS EPITHELIAL CELL,UR MOD /LPF
== END 2020-03-21 13:30 | disposition home or self-care (01) ==
LOC: ER 13:02
DX: M54.5 Low back pain (principal); M25.512 Pain in left shoulder; M25.511 Pain in right shoulder; F32.9 Major depressive disorder, single episode, unspecified; I25.2 Old myocardial infarction; Z90.710 Acquired absence of both cervix and uterus; Z98.890 Other specified postprocedural states
CPT/HCPCS: 81001; 87077; 87086; 99283